=== PATIENT | female | born 1985 | race American Indian/Alaskan Native ===

== ENCOUNTER 2018-06-13 02:23 | Emergency (ER) | payer BC ==
[2018-06-13 03:04] VITALS: BP 152/102
== END 2018-06-13 07:30 | disposition left against medical advice (07) ==
LOC: ED 02:23
DX: F41.9 Anxiety disorder, unspecified (principal); R07.89 Other chest pain; Z53.21 Procedure and treatment not carried out due to patient leaving prior to being seen by health care provider
CPT/HCPCS: 93005; 93010